=== PATIENT | female | born 1965 | race Caucasian/White ===

== ENCOUNTER 2016-05-10 20:33 | Emergency (ER) | payer SELFPAY ==
[~2016-05-10] VITALS: Ht 170.2 cm; Wt 77.3 kg
[~2016-05-10 20:33] MED LIST: ADVAIR HFA120 INHAL1 IH; CHANTIX0.5 MG PO; COLACE100 MG PO; FLEXERIL10 MG PO; FLONASE16 G1 BOTH NARES; INDOCIN25 MG PO; INDOCIN50 MG PO; LITE COAT ASPI325 M1 PO; LO-DOSE ASPIRIN81 M2 PO; MOTRIN800 MG PO; MUCINEX D ER T1 EACH PO; NOHOMEMEDS; NORCO 5/3251 TABLET PO; NORCO 7.5/321 TABLET PO; OMEPRAZOLE20 MG PO; OXYBUTYNIN CHLOR5 M1 PO; PREDNISONE20 MG PO; PRILOSEC20 MG PO; PROAIR HFA8.5 GM IH; PROVENTIL,2.5 MG/3 M IH; ST. JOSEPH ASPI81 MG PO; SYMBICORT60 INHALAT IH; TESSALON PERLE100 MG PO; VALIUM5 MG PO; ZITHROMAX500 MG PO
[2016-05-10 20:55] LABS: MCH 32.6 PG (29.0-34.0); MCHC 34.2 G/DL (30.0-36.0); MCV 95.3 FL (83-99); MEAN PLAT.VOLUME 11.1 uM^3 (9.5-12.4); PLATELET COUNT 297 K/uL (156-360); RBC DIS.WIDTH-CV 13.3 % (11.8-14.6); RBC DIS.WIDTH-SD 44.7 % (39-53); RED BLOOD COUNT 4.51 M/uL (3.80-5.20); WHITE BLOOD COUNT 11.3 K/uL (4.1-10.2)
[2016-05-10 21:07] LABS: D-DIMER ELISA 0.22 mg/L FEU (< 0.57)
[2016-05-10 21:09] LABS: CHLORIDE 106 mEq/L (99-109); POTASSIUM 3.5 mEq/L (3.7-5.4); SODIUM 140 mEq/L (136-147)
[2016-05-10 21:12] LABS: GLUCOSE 87 mg/dL (70-99)
[2016-05-10 21:13] LABS: ANION GAP 13 MEQ/L (2-14)
[2016-05-10 21:14] LABS: TOTAL BILIRUBIN 0.3 mg/dL (0.0-1.0)
[2016-05-10 21:15] LABS: ALKALINE PHOSPHATASE 110 IU/L (3-129); GFR ESTIMATE (CALCULATED) > 59 mL/min/
[2016-05-10 21:16] LABS: UREA NITROGEN (BUN) 13 mg/dL (9-23)
[2016-05-10 21:16] LABS: TROP-I INTERPRETATION NEGATIVE; TROPONIN-I < 0.01 ng/mL (0.0-0.30)
[2016-05-10 21:19] LABS: LIPASE 18 U/L (1.0-51.0)
[2016-05-10 21:23] LABS: ADD MIUA? YES; BILIRUBIN NEGATIVE; BLOOD MODERATE; COLOR STRAW ((YELLOW)); GLUCOSE (STRIP) NEGATIVE; KETONES NEGATIVE; LEUKOCYTES NEGATIVE; NITRITE NEGATIVE; PROTEIN (STRIP) NEGATIVE; SPECIFIC GRAVITY 1.005 (1.000-1.030); UROBILINOGEN 0.2 MG/DL (0.2-1.0)
[2016-05-10 21:28] LABS: BACTERIA NONE SEEN /HPF; EPITHELIAL CELLS RARE /HPF; MUCUS NONE SEEN /LPF; RED BLOOD CELLS 0-5 /HPF (0-5); WHITE BLOOD CELLS 0-5 /HPF (0-5)
[2016-05-10] MEDS ORDERED: ZOFRAN ODT4 MG PO (22:38)
[2016-05-10] MEDS ORDERED: BENTYL10 MG PO (22:38)
[2016-05-10 22:51] VITALS: BP 144/87
== END 2016-05-10 22:54 | disposition home or self-care (01) ==
LOC: RME 20:33 → EME 20:33 → RME 22:54
PROVIDERS: Nurse Practitioner Family
DX: K82.4 Cholesterolosis of gallbladder (principal); R10.11 Right upper quadrant pain
CPT/HCPCS: 71020; 76705; 80053; 81003; 83690; 84484; 85027; 85379; 93005; 99281; 99284

== ENCOUNTER 2016-08-27 06:41 | Day surgery (SDC) | payer OTHER ==
[~2016-08-27] VITALS: Ht 170.2 cm; Wt 78.0 kg
[~2016-08-27 06:41] MED LIST changes: +ALLEGRA ALLERG180 MG PO; +BENTYL10 MG PO; +LISINOPRIL5 MG PO; +ZOFRAN ODT4 MG PO
[2016-08-27 07:05] VITALS: BP 131/83
[2016-08-27 07:32] LABS: BASOPHIL COUNT 0.1 K/uL (0-0.1); EOSINOPHIL (%) 4.4 % (0-5); EOSINOPHIL COUNT 0.4 K/uL (0-0.3); HEMATOCRIT 45.5 % (36.0-46.0); IMMATURE GRANULOCYTE (%) 0.3 % (0.0-0.7); INSTRUMENT ABS NEUTROPHIL CT 3.6 K/uL; LYMPHOCYTE COUNT 2.9 K/uL (1.0-2.8); MCH 31.6 PG (29.0-34.0); MCV 95.8 FL (83-99); MEAN PLAT.VOLUME 11.3 uM^3 (9.5-12.4); MONOCYTE (%) 11.6 % (3-12); MONOCYTE COUNT 0.9 K/uL (0-0.8); NEUTROPHIL (%) 45.7 % (45-76); NEUTROPHIL COUNT 3.6 K/uL (1.8-6.4); PLATELET COUNT 335 K/uL (156-360); RBC DIS.WIDTH-CV 13.4 % (11.8-14.6); RED BLOOD COUNT 4.75 M/uL (3.80-5.20); WHITE BLOOD COUNT 7.9 K/uL (4.1-10.2)
[2016-08-27 07:50] LABS: ANION GAP 8 MEQ/L (2-14); CHLORIDE 106 MEQ/L (99-109); POTASSIUM 3.5 MEQ/L (3.7-5.4); SAMPLE HEMOLYSIS CHECK 0; SAMPLE ICTERIC CHECK 0; SAMPLE LIPEMIA CHECK 0; SODIUM 141 MEQ/L (136-147)
[2016-08-27 07:56] LABS: GFR ESTIMATE (CALCULATED) > 59 mL/min/; GLUCOSE 100 mg/dL (70-99); UREA NITROGEN (BUN) 7 mg/dL (9-23)
[2016-08-27] MEDS ORDERED: MOTRIN800 MG PO (09:53)
[2016-08-27] MEDS ORDERED: PERCOCET 5/31 TABLET PO (09:53)
[2016-08-27 11:03] VITALS: BP 133/65
[2016-08-27 13:50] VITALS: BP 129/80
== END 2016-08-27 13:50 | disposition home or self-care (01) ==
LOC: SDC 06:41
PROVIDERS: Obstetrics & Gynecology
PROC: 0TUD7JZ Supplement Urethra with Synthetic Substitute, Via Natural or Artificial Opening (ICD-10-PCS; principal; 2016-08-27)
DX: N39.3 Stress incontinence (female) (male) (principal); R32 Unspecified urinary incontinence; N36.41 Hypermobility of urethra; K21.9 Gastro-esophageal reflux disease without esophagitis; J44.9 Chronic obstructive pulmonary disease, unspecified; I10 Essential (primary) hypertension; Z88.1 Allergy status to other antibiotic agents
CPT/HCPCS: 80048; 85025; C1771; J0690; J1100; J2250; J2405; J3010

== ENCOUNTER 2016-12-30 20:56 | Emergency (ER) | payer OTHER ==
[~2016-12-30] VITALS: Ht 170.2 cm; Wt 81.8 kg
[~2016-12-30 20:56] MED LIST changes: +PERCOCET 5/31 TABLET PO
[2016-12-30 21:18] LABS: HEMATOCRIT 43.9 % (36.0-46.0); MCH 32.1 PG (29.0-34.0); MCHC 34.2 G/DL (30.0-36.0); MEAN PLAT.VOLUME 11.2 uM^3 (9.5-12.4); PLATELET COUNT 275 K/uL (156-360); RBC DIS.WIDTH-CV 12.9 % (11.8-14.6); RBC DIS.WIDTH-SD 44.4 % (39-53); RED BLOOD COUNT 4.67 M/uL (3.80-5.20); WHITE BLOOD COUNT 11.4 K/uL (4.1-10.2)
[2016-12-30 21:26] LABS: CHLORIDE 106 mEq/L (99-109); POTASSIUM 3.7 mEq/L (3.7-5.4); SODIUM 141 mEq/L (136-147)
[2016-12-30 21:28] LABS: GLUCOSE 88 mg/dL (70-99)
[2016-12-30 21:30] LABS: ANION GAP 13 MEQ/L (2-14)
[2016-12-30 21:32] LABS: GFR ESTIMATE (CALCULATED) > 59 mL/min/
[2016-12-30 21:33] LABS: UREA NITROGEN (BUN) 11 mg/dL (9-23)
[2016-12-30 21:38] LABS: TROP-I INTERPRETATION NEGATIVE; TROPONIN-I < 0.01 ng/mL (0.0-0.30)
[2016-12-31 00:32] LABS: TROP-I INTERPRETATION NEGATIVE; TROPONIN-I < 0.01 ng/mL (0.0-0.30)
[2016-12-31] MEDS ORDERED: OMEPRAZOLE20 MG PO (00:57)
[2016-12-31 01:35] VITALS: BP 132/74
== END 2016-12-31 01:36 | disposition home or self-care (01) ==
LOC: EME 20:56
PROVIDERS: Emergency Medicine
DX: R07.89 Other chest pain (principal); R06.02 Shortness of breath; R05 Cough; J44.9 Chronic obstructive pulmonary disease, unspecified; I10 Essential (primary) hypertension; Z79.82 Long term (current) use of aspirin; F17.200 Nicotine dependence, unspecified, uncomplicated
CPT/HCPCS: 71020; 80048; 84484; 85027; 93005; 99281; 99284

== ENCOUNTER 2017-03-16 12:11 | Emergency (ER) | payer OTHER ==
[~2017-03-16] VITALS: Ht 170.2 cm; Wt 82.0 kg
[2017-03-16 13:25] LABS: HEMATOCRIT 47.2 % (36.0-46.0); HEMOGLOBIN 15.8 G/DL (11.9-15.5); MCH 32.4 PG (29.0-34.0); MCHC 33.5 G/DL (30.0-36.0); MCV 96.7 FL (83-99); PLATELET COUNT 322 K/uL (156-360); RBC DIS.WIDTH-CV 12.9 % (11.8-14.6); RBC DIS.WIDTH-SD 46.7 % (39-53); RED BLOOD COUNT 4.88 M/uL (3.80-5.20); WHITE BLOOD COUNT 8.6 K/uL (4.1-10.2)
[2017-03-16 13:38] LABS: CHLORIDE 103 mEq/L (99-109); POTASSIUM 4.6 mEq/L (3.7-5.4); SODIUM 138 mEq/L (136-147)
[2017-03-16 13:39] LABS: GLUCOSE 84 mg/dL (70-99)
[2017-03-16 13:43] LABS: GFR ESTIMATE (CALCULATED) > 59 mL/min/
[2017-03-16 13:44] LABS: UREA NITROGEN (BUN) 15 mg/dL (9-23)
[2017-03-16 14:14] LABS: APPEARANCE CLOUDY ((CLEAR)); BILIRUBIN NEGATIVE; BLOOD SMALL; COLOR YELLOW ((YELLOW)); GLUCOSE (STRIP) NEGATIVE; KETONES NEGATIVE; LEUKOCYTES TRACE; NITRITE NEGATIVE; PROTEIN (STRIP) NEGATIVE; SPECIFIC GRAVITY 1.006 (1.000-1.030); UROBILINOGEN 0.2 MG/DL (0.2-1.0)
[2017-03-16 14:19] LABS: BACTERIA RARE /HPF; EPITHELIAL CELLS 4+ /HPF; MUCUS TRACE /LPF; RED BLOOD CELLS 0-5 /HPF (0-5); UCUL ADDED? YES
[2017-03-16] MEDS ORDERED: FLEXERIL10 MG PO (16:52)
[2017-03-16] MEDS ORDERED: MOTRIN600 MG PO (16:52)
[2017-03-16] MEDS ORDERED: TRAMADOL HCL50 MG PO (16:52)
[2017-03-16 17:07] VITALS: BP 129/67
== END 2017-03-16 17:09 | disposition home or self-care (01) ==
LOC: EME 12:11
DX: M54.5 Low back pain (principal); R10.9 Unspecified abdominal pain; F17.200 Nicotine dependence, unspecified, uncomplicated
CPT/HCPCS: 74176; 80048; 81003; 85027; 87086; 99281; 99284

== ENCOUNTER 2017-05-23 11:57 | Emergency (ER) | payer OTHER ==
[~2017-05-23] VITALS: Ht 170.2 cm; Wt 81.4 kg
[~2017-05-23 11:57] MED LIST changes: +MOTRIN600 MG PO; +TRAMADOL HCL50 MG PO
[2017-05-23 13:33] LABS: HEMATOCRIT 39.7 % (36.0-46.0); HEMOGLOBIN 13.9 G/DL (11.9-15.5); MCH 31.9 PG (29.0-34.0); MCV 91.1 FL (83-99); PLATELET COUNT 235 K/uL (156-360); RBC DIS.WIDTH-CV 12.3 % (11.8-14.6); RBC DIS.WIDTH-SD 41.3 % (39-53); RED BLOOD COUNT 4.36 M/uL (3.80-5.20); WHITE BLOOD COUNT 7.4 K/uL (4.1-10.2)
[2017-05-23 13:45] LABS: ALBUMIN 3.9 g/dL (3.2-4.8); CHLORIDE 108 mEq/L (99-109); POTASSIUM 3.7 mEq/L (3.7-5.4); SODIUM 141 mEq/L (136-147)
[2017-05-23 13:47] LABS: GLUCOSE 92 mg/dL (70-99); TOTAL PROTEIN 7.1 g/dL (6.4-8.3)
[2017-05-23 13:49] LABS: TOTAL BILIRUBIN 0.4 mg/dL (0.0-1.0)
[2017-05-23 13:50] LABS: APPEARANCE CLEAR ((CLEAR)); BILIRUBIN NEGATIVE; BLOOD SMALL; COLOR YELLOW ((YELLOW)); GLUCOSE (STRIP) NEGATIVE; KETONES NEGATIVE; LEUKOCYTES NEGATIVE; NITRITE NEGATIVE; PROTEIN (STRIP) NEGATIVE; SPECIFIC GRAVITY 1.014 (1.000-1.030); UROBILINOGEN 0.2 MG/DL (0.2-1.0)
[2017-05-23 13:51] LABS: ALKALINE PHOSPHATASE 127 IU/L (3-129); CREATININE 0.8 mg/dL (0.6-1.3); GFR ESTIMATE (CALCULATED) > 59 mL/min/
[2017-05-23 13:52] LABS: UREA NITROGEN (BUN) 10 mg/dL (9-23)
[2017-05-23 13:53] LABS: AST (GOT) 38 IU/L (2-34); TROP-I INTERPRETATION NEGATIVE; TROPONIN-I 0.02 ng/mL (0.0-0.30)
[2017-05-23 13:54] LABS: ALT (GPT) 42 IU/L (3-49)
[2017-05-23 14:04] LABS: BACTERIA NONE SEEN /HPF; EPITHELIAL CELLS 1+ /HPF; MUCUS TRACE /LPF; RED BLOOD CELLS 0-5 /HPF (0-5); WHITE BLOOD CELLS 0-5 /HPF (0-5)
[2017-05-23] MEDS ORDERED: PREDNISONE50 MG PO (14:55)
[2017-05-23 15:02] VITALS: BP 138/87
== END 2017-05-23 15:05 | disposition home or self-care (01) ==
LOC: EME 11:57
PROVIDERS: Physician Assistant
DX: J20.9 Acute bronchitis, unspecified (principal); J44.0 Chronic obstructive pulmonary disease with (acute) lower respiratory infection; Z87.891 Personal history of nicotine dependence
CPT/HCPCS: 71046; 80053; 81003; 84484; 85027; 93005; 94640; 99281; 99284; J7512

== ENCOUNTER 2017-08-02 19:56 | Emergency (ER) | payer OTHER ==
[~2017-08-02] VITALS: Ht 170.2 cm; Wt 79.0 kg
[~2017-08-02 19:56] MED LIST changes: +PREDNISONE50 MG PO
[2017-08-02 20:47] LABS: HEMATOCRIT 46.7 % (36.0-46.0); HEMOGLOBIN 15.9 G/DL (11.9-15.5); MCH 32.2 PG (29.0-34.0); MCV 94.5 FL (83-99); PLATELET COUNT 320 K/uL (156-360); RBC DIS.WIDTH-CV 14.1 % (11.8-14.6); RBC DIS.WIDTH-SD 49.1 % (39-53); RED BLOOD COUNT 4.94 M/uL (3.80-5.20); WHITE BLOOD COUNT 11.6 K/uL (4.1-10.2)
[2017-08-02 21:05] LABS: ALBUMIN 3.7 g/dL (3.2-4.8); CHLORIDE 105 mEq/L (99-109); SODIUM 136 mEq/L (136-147)
[2017-08-02 21:08] LABS: GLUCOSE 95 mg/dL (70-99); TOTAL PROTEIN 5.9 g/dL (6.4-8.3)
[2017-08-02 21:10] LABS: TOTAL BILIRUBIN 0.2 mg/dL (0.0-1.0)
[2017-08-02 21:11] LABS: ALKALINE PHOSPHATASE 92 IU/L (3-129); CREATININE 1.5 mg/dL (0.6-1.3); GFR ESTIMATE (CALCULATED) 39 mL/min/
[2017-08-02 21:12] LABS: UREA NITROGEN (BUN) 12 mg/dL (9-23)
[2017-08-02 21:13] LABS: AST (GOT) 24 IU/L (2-34)
[2017-08-02 21:14] LABS: ALT (GPT) 20 IU/L (3-49)
[2017-08-02] MEDS ORDERED: KEFLEX500 MG PO (21:17)
[2017-08-02 21:21] LABS: TROP-I INTERPRETATION NEGATIVE; TROPONIN-I < 0.01 ng/mL (0.0-0.30)
[2017-08-02 22:30] VITALS: BP 109/72
== END 2017-08-02 22:31 | disposition home or self-care (01) ==
LOC: EME 19:56
PROVIDERS: Emergency Medicine Emergency Medical Services
DX: J32.3 Chronic sphenoidal sinusitis (principal); E86.0 Dehydration; R42 Dizziness and giddiness; R53.1 Weakness; I10 Essential (primary) hypertension; J44.9 Chronic obstructive pulmonary disease, unspecified; F17.200 Nicotine dependence, unspecified, uncomplicated
CPT/HCPCS: 70450; 71045; 80053; 84484; 85027; 93005; 99281; 99285